=== PATIENT | female | born 1965 | race Caucasian/White ===

== ENCOUNTER 2018-06-17 10:41 | Day surgery (SDC) | payer OTHER ==
[~2018-06-17 10:41] MED LIST: CEFAZOLIN 1 GM INJ
[2018-06-17] MEDS ORDERED: FENTAnyl 50 MCG/ML VIAL (13:04)
[2018-06-17] MEDS ORDERED: LIDOCAINE 2% (SDV) 5 ML INJ (13:04)
[2018-06-17] MEDS ORDERED: MIDAZOLAM 1 MG/ML 2 ML INJ (13:04)
[2018-06-17] MEDS ORDERED: NEOSTIGMINE 3 MG/3 ML SYRINGE (13:04)
[2018-06-17] MEDS ORDERED: GLYCOPYRROLATE 0.4 MG INJ (13:04)
[2018-06-17] MEDS ORDERED: ROCURONIUM 50 MG INJ (13:04)
[2018-06-17] MEDS ORDERED: PROPOFOL 20 ML (13:04)
[2018-06-17] MEDS ORDERED: DEXAMETHASONE 4 MG/ML 1 ML INJ (13:10)
[2018-06-17] MEDS ORDERED: ONDANSETRON 4 MG INJ (13:10)
[2018-06-17] MEDS ORDERED: KETOROLAC 30 MG INJ IV (13:30)
[2018-06-17] MEDS ORDERED: IBUPROFEN 600 MG TAB PO (13:30)
== END 2018-06-17 15:54 | disposition home or self-care (01) ==
LOC: SDS 10:41
DX: N95.0 Postmenopausal bleeding (principal)
CPT/HCPCS: 58120; 88305